=== PATIENT | female | born 1945 | race Caucasian/White ===

== ENCOUNTER 2016-12-23 08:48 | Day surgery (SDC) ==
[2016-12-23] MEDS ORDERED: LIDOCAINE 2% 2ML SDV ONE (09:35)
[2016-12-23] MEDS ORDERED: LIDOCAINE 1% 20 ML MDV ID ONE (09:35)
[2016-12-23] MEDS ORDERED: DIPRIVAN 20 ML VIAL IVP ONE (11:00)
[2016-12-23] MEDS ORDERED: VERSED ONE (11:00)
[2016-12-23 12:32] VITALS: BP 170/70; TEMP 98
--- NOTE | 2016-12-24 11:25 | OP ---
INDICATIONS FOR PROCEDURE: 71 year old female with past history of adenomatous polyps. She has multiple adenomatous removed by colonoscopy little greater than three years ago. She presents now for surveillance exam. MEDICATIONS: SEE ANESTHESIA NOTES. PROCEDURE: COLONOSCOPY. REPORT: The risks, benefits, alternatives and limitations were discussed in detail with the patient. Informed consent was obtained. After adequate sedation was achieved, a digital rectal exam revealed good tone, no masses. The colonoscope was introduced into the rectum and advanced under direct visual guidance to the cecum. The cecum was identified by the appendiceal orifice and IC valve. I then slowly withdrew the scope circumferential manner and examined the mucosa quite carefully. I looked on the proximal and distal side of the fold and flexures as best as possible. I sent the retroflex scope in the right colon and the left colon to increase visualization. The clonic mucosa is unremarkable it's entire length including on retroflex view of the anal canal. The prep was good. The withdrawal time is 9 minutes and 28 seconds. The patient tolerated the procedure well with stable vital signs and pulse oximetry throughout. IMPRESSION: 1. Normal examination RECOMMENDATIONS: 1. High fiber diet 2. Office visit as needed 3. With her history of multiple adenomatous polyps in the past on several occasions I recommend a surveillance examination again in five years or sooner if there are any signs or symptoms that indicate otherwise. CC: Dr. Donta BROOKS
== END 2016-12-23 12:25 | disposition home or self-care (01) ==
LOC: SURG 08:48
PROVIDERS: ATTEND Internal Medicine Gastroenterology
DX: Z86.010 Personal history of colon polyps (principal)